=== PATIENT | female | born 1985 | race Hispanic/Latino ===

== ENCOUNTER 2017-12-18 09:54 | Day surgery (SDC) | payer OTHER ==
[2017-12-15 11:03] LABS: Absolute Lymphocytes (CBC) 2.1 K/uL (0.7-4.9); Absolute Monocytes 0.5 K/uL (0.1-1.3); Absolute Neutrophil 4.6 K/uL (1.8-8.0); Basophils % 0.7 % (0-1.3); Hematocrit 39.6 % (36.0-45.0); Lymphocytes % 28.3 % (15.3-44.8); MCV 78.8 fL (80-100); MPV 9.5 fL (7.6-11.3); Monocytes % 6.4 % (3.3-12.3); RBC Red Blood Cell Count 5.03 M/uL (3.86-4.86)
[2017-12-15 11:06] LABS: Urine Appearance CLEAR; Urine Bilirubin NEGATIVE (NEG); Urine Blood 2+ (NEG); Urine Color YELLOW; Urine Glucose NEGATIVE (NEG); Urine Protein NEGATIVE (NEG); Urine Specific Gravity >=1.030 (1.005-1.030); Urine Urobilinogen 0.2 mg/dL (0.2-1.0)
[2017-12-15 11:08] LABS: Urine Microscopic Reflex ORDER UMIC
[2017-12-15 12:19] LABS: Urine Bacteria <20 /HPF (<20); Urine Culture Reflex Order NOT NEEDED
--- NOTE | 2017-12-15 12:39 | EKG ---
Test Date: 2017-12-15 Test Time: 10:25:19 [employer] Specialist: DAPHNE MEASUREMENT RESULTS: Intervals: Rate: 67 PA: 132 QRSD: 88 QT: 398 QTc: 420 Early: P: 5 PA: 132 QRS: 44 T: 47 INTERPRETIVE STATEMENTS: Normal sinus rhythm with sinus arrhythmia Normal ECG Compared to ECG 07/14/2015 09:07:15 T-wave abnormality no longer present Electronically Signed On 12-15-17 12:39:06 CDT by Dat David
[~2017-12-18 09:54] MED LIST: CEFAZOLIN/SWI 1gm 1 GM/10 ML SYR ONE
[2017-12-18] MEDS ORDERED: SCOPOLAMINE HYDROBROMIDE PATCH TD ONE (10:11)
[2017-12-18] MEDS ORDERED: Ringers Lactate 1,000 ML IV ONE ×2 (10:11→13:29)
[2017-12-18 10:12] LABS: Specific Gravity 1.025 (1.005-1.030)
[2017-12-18] MEDS: CEFAZOLIN/SWI 1gm 1 GM/10 ML SYR ONE ×2 (10:40→11:40)
[2017-12-18] MEDS ORDERED: LIDOCAINE 1% MPF 2 ML AMPULE ONE (10:46)
[2017-12-18] MEDS ORDERED: DEXAMETHASONE 10 MG/ML VIAL ONE (10:46)
[2017-12-18] MEDS ORDERED: MIDAZOLAM HCL 2 MG/2 ML INJ ONE (10:46)
[2017-12-18] MEDS ORDERED: FENTANYL CITR 250 MCG/5 ML ONE (10:46)
[2017-12-18] MEDS ORDERED: ONDANSETRON HCL 40 MG/20 ML VIAL ONE (10:46)
[2017-12-18] MEDS ORDERED: PROPOFOL 200 MG/20 ML VIAL IV ONE (10:46)
[2017-12-18] MEDS ORDERED: ROCURONIUM 50 MG/5 ML VIAL IV ONE (10:46)
[2017-12-18] MEDS: NA CHLORIDE 0.9% 1,000 ML ONE ×2 (12:00→12:20)
[2017-12-18] MEDS ORDERED: CEFAZOLIN/SWI 1gm 1 GM/10 ML SYR ONE (14:42)
[2017-12-18] MEDS ORDERED: KETOROLAC 30 MG/ML INJ ONE (15:05)
[2017-12-18] MEDS: MEPERIDINE HCL 50 MG/ML AMP ONE ×4 (16:06→16:22)
[2017-12-18] MEDS ORDERED: PROMETHAZINE 25 MG/ML VIAL ONE (16:55)
[2017-12-18 17:22] VITALS: BP 118/69; TEMP 97.3; O2SAT 98
[2017-12-18] MEDS ORDERED: HYDROCODONE/APAP 5/325 MG TAB ONE (17:39)
[2017-12-18] MEDS ORDERED: METOCLOPRAMIDE 10 MG/2mL INJ ONE (17:40)
--- NOTE | 2017-12-19 02:55 | OP ---
Date of Procedure: 12/18/2017 Surgeon: Sunshine Sinha MD Cloth Finishing Range Tender: Lucy Ferreira. Preoperative Diagnoses: Menorrhagia, endometriosis of the uterus, and possible pelvic peritoneum. Postoperative Diagnosis: Menorrhagia, endometriosis of the uterus, and possible pelvic peritoneum, e ndometriosis of pelvic peritoneum, uterus, sigmoid bowel adhesions, and left ureteric adhesions. Procedures Performed: 1.Total laparoscopic hysterectomy, bilateral salpingectomy. 2.Lysis of sigmoid adhesions, extensive and left ureterolysis, left ureteric stent placement and rem oval with cystoscopy, endometriosis removal. Surgeon: Dr. Sinha. Anesthesia: General endotracheal. Estimated Blood Loss: 100. Complications: No complications. Drains: The patient's condition is stable. Specimens: Uterus, bilateral tubes, endometriosis along with the peritoneum of the uterus, and the m esosalpinx along with the tubes. The endometriosis was present. Urine Output: 300, pink-tinged due to the placement of the stent. Findings: Uterus retroflexed, bowel adhesions about 5 cm at the site of the myomectomy scar. The le ft ureter was adhered after the removal of the left ovary to the left adnexa and to the left lateral posterior wall of the uterus completely obliterating the left sidewall. The posterior cul-de-sac was also obliterated and the sigmoid adhesions had to be taken down in order to reopen the cul-de-sac. Both tubes had hydrosalpinges and endometriosis was present on the mesosalpinx on the round ligament and on the utero-ovarian ligament on the right side. After the ureteric stent was removed, both ureters were patent and had strong jets of urine. There i s no evidence of any trauma to the bladder or the ureters. The bowel appeared to be normal and was inspected also by Dr. Chowdhury who was called in for consultatio n. Description Of Procedure: After informed consent was verified, patient was taken back to OR, 1 g of Ancef was given. SCDs were started. She were intubated, then placed in an Jose R stirrups in the lit hotomy position. Pelvic exam performed, uterus appeared to be retroflexed. Cervix midposition. No adnexal masses with decreased mobility of the uterus. Abdomen, vulva, vagina, and perineum were prepped and draped in a sterile fashion. Bermudez was placed to drain the bladder and a large VCare fixed in place. This area was then draped after it was attach ed to LR bag, emptied 300 for retrograde filling using a cysto tubing. A 1 cm infraumbilical incision was made with a scalpel using the open laparoscopy technique. Fascia was incised, tagged. The peritoneum was entered and a Doe introduced. A 10 mm suprapubic incisio n was made and two 5 mm left lower and right lower quadrant incisions were made. After the scope was placed through the umbilicus, the rest of the ports were placed without any problems. The appendix, liver, upper peritoneal surfaces, omentum all appeared to be unremarkable. The patient was placed in T-dwain and pelvic cavity inspected and findings as above. Once the dense sigmoid adhe sions were found, the left lateral wall was also fused to this. Dissection was performed to open the lateral wall. The peritoneum was incised with the help of scissors. Once the lateral wall was inci sed all the way up to the pelvic brim and down to the level of the round ligament, dissection was per formed to identify the ureter. The ureter was found in the medial leaf of the pelvic peritoneum here and appeared to be adhered to the lateral wall of the uterus as well as the left tube, which had a h ydrosalpinx and was socked in with endometriosis on the mesosalpinx to the posterior aspect of the le ft round ligament as well as to the medial aspect of the uterus. The bowel adhesions were very significant and so these had to be taken down systematically with push- spread technique. Small windows were created and with sharp dissection with scissors, the bowel adhe sions were all taken down. There were only 2 places where bipolar LigaSure was used to cauterize for hemostasis. Once all the bowel adhesions were taken down from the right, the last, from the inferio r aspect all the way up the entire bowel was released and retracted inferiorly. Then, the left lateral wall appeared to be completely adhered. There was no window where I could dis sect here, right underneath the round ligament since this would be the mesosalpinx. This was taken d own with the help of the LigaSure by opening up with push-spread technique creating a window. Once t he mesosalpinx was all the way taken down to the level of the cornual end then, the tube was dissecte d out and removed with the LigaSure. Once this was done, I was able to see that the ureter was dense ly adhered in the adhesions, so decision was made to place ureteric stent. The Bermudez was removed. A 17-Ugandan sheath, 30-degree lens normal saline used for cystoscopy. A 0.03 5 inch Glidewire was first passed through the left ureter and left ureter to 20 cm. Then, once this was held in place, the scope was removed. A 5-Ugandan ureteric catheter stent was placed on top of it . Once this was advanced to 15 cm into the ureter, then the Glidewire was pulled out. A regular 16- Ugandan Bermudez was reinserted. These two were tied together. So, the stent would not be displaced and then a Seth tree connector was used to attach the stent into the drainage tubing and then these were left in place. This area was draped. Gown and gloves were changed. Then, ureterolysis was performed by taking down the adhesions of the posterior aspect of the uterus d own and dissecting the anterior wall first raising of the anterior pelvic peritoneum inferior to the round ligament. The bladder peritoneum was opened up all the way to the left round ligament. The bl adder was dissected inferiorly and clearly the uterine arteries were dissected here as well and they were isolated. After the anterior broad ligament was all dissected, then the round ligament was take n down and then this opened up a window where I could see the ureter inferiorly as well. So, once th is was visualized, a window was created inferiorly between the ureter and the uterus and this plane w as dissected with the help of LigaSure. Once this was safely dissected, the ureter fell off to the s myron. Then, the posterior aspect along with the peritoneum and the endometriosis was all removed and taken down to the level of the left uterosacral. On the opposite side, similar dissection was performed taking down the utero-ovarian ligament, mesosa lpinx, and tube were removed. Then, the round ligament was taken down. The anterior broad ligament was opened up to connect the bladder peritoneum posteriorly. The dissection was carried all the way to the right uterosacral ligament and then the posterior peritoneum and the posterior aspect as well from the cul-de-sac. The bladder peritoneum was cleaned up, vesicovaginal space was entered with a m onopolar hook blade and then the bladder retracted inferiorly at least 3 cm. Then windows were made on the right side medial to the uterine with the help of the monopolar, then bipolar basket tip was u sed to cauterize the uterine and then with the help of the LigaSure taken down. The cardinal ligamen ts were also socked up so it was easy to take down with the bipolar as well and the attention was dir ected to the left side here, the medial incision was made along the uterine with the monopolar to cre ate a space and these were taken down safely and then once the cup was fully exposed, a circumferenti al colpotomy was performed, the monopolar hook blade and the specimen detached and removed through th e vagina. Nasal suction bulb was placed for pneumo occlusion then after thorough irrigation and suction of the vaginal cuff, 0 Vicryl was used to close the angles on each side and a simple stitch and 3 figure-of- eights in the middle with great apposition and closure and good support. Then both ureters appeared to have no evidence of electrical, mechanical, or thermal injury to them. The stent was palpable. N o evidence of any exposure on the left side. Then, right ovary area pexy was performed so that this was attached with 2-0 3-0 Vicryl sutures x2 to the round ligament on the right side and intracorporea l knots were done on one and the extracorporeal knots on other. Thorough irrigation and suction were performed with excellent hemostasis. All the trocars were removed under direct vision. Gas desuffl ated Doe removed. Fascia closed with 0 Vicryl in a xvmtxg-[id number]-gulod fashion and subcutaneous tissu e was brought together with a simple 0 Vicryl stitch in the fascia at the suprapubic brought together with a simple 0 Vicryl stitch. All skin incisions closed with 4-0 Monocryl. Cystoscopy was perform ed after removing the Bermudez and stent. There were excellent streams of urine from both ureteric orif ices. No evidence of any trauma. Bladder was drained. Vagina was cleaned up. Instrument, needle, and sponge counts x3 were correct at the end of the case. The patient tolerated the procedure well. EBL was 100. No other complications. ALLI/RHONDA Voice ID: [id number] Report ID: [id number]
== END 2017-12-18 18:25 | disposition home or self-care (01) ==
LOC: OR 09:54
PROVIDERS: ATTEND Obstetrics & Gynecology
PROC: 0UT74ZZ Resection of Bilateral Fallopian Tubes, Percutaneous Endoscopic Approach (ICD-10-PCS; 2017-12-18)
PROC: 0T778DZ Dilation of Left Ureter with Intraluminal Device, Via Natural or Artificial Opening Endoscopic (ICD-10-PCS; 2017-12-18)
PROC: 0TN74ZZ Release Left Ureter, Percutaneous Endoscopic Approach (ICD-10-PCS; 2017-12-18)
PROC: 0DBW4ZZ Excision of Peritoneum, Percutaneous Endoscopic Approach (ICD-10-PCS; 2017-12-18)
PROC: 0UT94ZZ Resection of Uterus, Percutaneous Endoscopic Approach (ICD-10-PCS; principal; 2017-12-18 12:35)
DX: N92.1 Excessive and frequent menstruation with irregular cycle (principal); N80.0 Endometriosis of uterus; N80.3 Endometriosis of pelvic peritoneum; N73.6 Female pelvic peritoneal adhesions (postinfective); N72 Inflammatory disease of cervix uteri; D50.0 Iron deficiency anemia secondary to blood loss (chronic); E22.1 Hyperprolactinemia; Q21.1 Atrial septal defect; Z83.3 Family history of diabetes mellitus
CPT/HCPCS: 36415; 81003; 81015; 81025; 85025; 86850; 86900; 86901; 88305; 88307; 93005; J0690; J1100; J2001; J2175; J2250; J2405; J2550; J2765; J7030